=== PATIENT | male | born 1965 | race Caucasian/White ===

== ENCOUNTER → 2017-06-28 | Outpatient (CLI) | payer MEDICAID ==
[~2017-06-28] MED LIST: ABX LEFTEYE; ALEN70TA5 PO; AMLO10TA2 PO; ASPI325T17 PO; ATEN25TA PO; ATOR10TA9 PO; BENA40TA2 PO; DIAZ10TA4 PO; DULO30CA2 PO; GABA300C10 PO; MELO15TA24 PO; METF500T4 PO; OMEP20TA62 PO; OXYC-307 PO; OXYCODONE ER PO; TRAM50TA2 PO; ZOLP5TAB6 PO
[2017-06-28 14:26] LABS: BASOPHILS # (AUTO) 0.04 x10^3/uL (0-0.1); BASOPHILS % (AUTO) 0 % (0-1); EOSINOPHILS # (AUTO) 0.14 x10^3/uL (0-0.4); EOSINOPHILS % (AUTO) 2 % (1-7); LYMPHOCYTES # (AUTO) 1.93 x10^3/uL (1-3.4); LYMPHOCYTES % (AUTO) 23 % (22-44); MD NO; MEAN CORPUSCULAR HEMOGLOBIN 29.1 pg (27.5-34.5); MEAN CORPUSCULAR HGB CONC 33.6 g/dL (33.2-36.2); MEAN CORPUSCULAR VOLUME 86.6 fL (81-97); MEAN PLATELET VOLUME 7.1 fL (7.4-10.4); MONOCYTES % (AUTO) 6 % (2-9); NEUTROPHILS # (AUTO) 5.77 x10^3/uL (1.8-6.8); NEUTROPHILS % (AUTO) 69 % (42-75); PLATELET COUNT 343 x10^3/uL (130-400); RED BLOOD COUNT 4.89 x10^6/uL (4.38-5.82)
[2017-06-28 14:34] LABS: MICROSCOPIC AUTO
[2017-06-28 14:38] LABS: ANION GAP 8 mmol/L (5-15); CALCIUM 8.9 mg/dL (8.5-10.1); CHLORIDE 104 mmol/L (98-107)
[2017-06-28 14:41] LABS: ALANINE AMINOTRANSFERASE 47 U/L (12-78); ALKALINE PHOSPHATASE 88 U/L (45-117); BILIRUBIN,TOTAL 0.5 mg/dL (0.2-1.0); CREATININE 0.97 mg/dL (0.7-1.3); TOTAL PROTEIN 7.8 g/dL (6.4-8.2)
[2017-06-28 14:41] LABS: CULTURE INDICATED? NO
== END | disposition home or self-care (01) ==
LOC: STAR 13:22
PROVIDERS: ATTEND Orthopaedic Surgery
DX: Z01.818 Encounter for other preprocedural examination (principal); M17.12 Unilateral primary osteoarthritis, left knee
CPT/HCPCS: 36415; 80053; 81001; 85025; 87081; 87147; 93005

== ENCOUNTER 2017-07-05 07:10 | Inpatient (IN) | payer MEDICAID ==
[~2017-07-05] VITALS: Ht 177.8 cm; Wt 108.9 kg
[2017-07-05] MEDS ORDERED: LACTATED RINGERS 1,000 ML IV SCH (07:36)
[2017-07-05] MEDS ORDERED: OXYC20TA59 PO (07:47)
[2017-07-05] MEDS ORDERED: CELE200C PO (07:47)
[2017-07-05] MEDS ORDERED: VANCOMYCIN 2,000 MG in SODIUM CHLORIDE 0.9% 500 ML IV ONE (08:00)
[2017-07-05] MEDS ORDERED: LIDOCAINE-MPF 1%, 2ML INFIL PRN (08:00)
[2017-07-05] MEDS ORDERED: VANCOMYCIN PER PHARMACY MC PRN (08:00)
[2017-07-05] MEDS ORDERED: FENTANYL PF 250 MCG/5ML ONE (08:08)
[2017-07-05] MEDS ORDERED: MIDAZOLAM 1 MG/ML, 2ML ONE (08:08)
[2017-07-05] MEDS ORDERED: TRANEXAMIC ACID 100 MG/ML, 10ML ONE (08:40)
[2017-07-05] MEDS ORDERED: ROPIvacaine/PF 0.2%, 20 ML ONE (08:40)
[2017-07-05] MEDS ORDERED: SODIUM CHLORIDE 0.9% 100 ML ONE (08:40)
[2017-07-05] MEDS ORDERED: morphine SULFATE/PF 1 MG/ML, 10ML ONE (08:40)
[2017-07-05] MEDS ORDERED: EPINEPHRINE 1 MG/ML, 1ML ONE (08:40)
[2017-07-05] MEDS ORDERED: KETOROLAC 60 MG/2 ML ONE (08:40)
[2017-07-05] MEDS ORDERED: GABAPENTIN 300 MG CAPSULE ONE (09:27)
[2017-07-05] MEDS ORDERED: NEOSTIGMINE 1 MG/ML, 10ML ONE (09:28)
[2017-07-05] MEDS ORDERED: ONDANSETRON 2MG/ML, 2ML ONE (09:28)
[2017-07-05] MEDS ORDERED: GLYCOPYRROLATE 0.2MG/1ML, 5ML ONE (09:28)
[2017-07-05] MEDS ORDERED: DEXAMETHASONE 4 MG/ML, 1ML ONE (09:28)
[2017-07-05] MEDS ORDERED: ROCURONIUM 10 MG/ML,10ML ONE (09:28)
[2017-07-05] MEDS ORDERED: PROPOFOL 10 MG/ML, 20ML ONE (09:28)
[2017-07-05] MEDS ORDERED: SUCCINYLCHOLINE 20 MG/ML, 10ML ONE (09:28)
[2017-07-05] MEDS ORDERED: CEFAZOLIN 1,000 MG ONE (09:28)
[2017-07-05] MEDS ORDERED: GABAPENTIN 300 MG CAPSULE PO ONE (09:30)
[2017-07-05] MEDS ORDERED: LABETALOL 5MG/ML, 20ML IV PRN (10:30)
[2017-07-05] MEDS ORDERED: FENTANYL PF 100 MCG/2ML IV PRN (10:30)
[2017-07-05] MEDS ORDERED: MORPHINE SULFATE 4 MG/ML, 1ML IV PRN (10:30)
[2017-07-05] MEDS ORDERED: ACETAMINOPHEN 325 MG TABLET PO PRN ×2 (10:30→13:30)
[2017-07-05] MEDS ORDERED: OXYcodone 5 MG/5 ML ORAL.SOL UDC PO PRN (10:30)
[2017-07-05] MEDS ORDERED: METOCLOPRAMIDE 5 MG/ML, 2ML IV PRN (10:30)
[2017-07-05] MEDS ORDERED: ONDANSETRON 2MG/ML, 2ML IVPush PRN ×2 (10:30→13:30)
[2017-07-05] MEDS ORDERED: hydrALAzine 20 MG/ML, 1ML IV PRN (10:30)
[2017-07-05] MEDS ORDERED: OXYcodone 5 MG/5 ML ORAL.SOL UDC ONE (11:31)
[2017-07-05] MEDS ORDERED: MEPERIDINE/PF 50 MG/ML ONE (11:31)
[2017-07-05] MEDS ORDERED: MEPERIDINE/PF 25MG/0.5ML IVPush PRN (12:00)
[2017-07-05 13:15] VITALS: BP 129/82
[2017-07-05] MEDS ORDERED: HYDROcodone/APAP 7.5-325MG/15ML UDC PO PRN (13:30)
[2017-07-05] MEDS ORDERED: BISACODYL 10 MG SUPP PR PRN (13:30)
[2017-07-05] MEDS ORDERED: ALUMINUM/MAG/SIMETHICONE 30 ML UDC PO PRN (13:30)
[2017-07-05] MEDS ORDERED: DIPHENHYDRAMINE 25 MG CAPSULE PO PRN (13:30)
[2017-07-05] MEDS ORDERED: METFORMIN MC SCH (13:30)
[2017-07-05] MEDS ORDERED: SENNA/DOCUSATE TABLET PO PRN (13:30)
[2017-07-05] MEDS ORDERED: MAGNESIUM HYDROXIDE 8%, 30ML UDC PO PRN (13:30)
[2017-07-05] MEDS: metFORMIN 500 MG TABLET PO SCH (16:49)
[2017-07-05] MEDS: GABAPENTIN 300 MG CAPSULE PO SCH ×2 (16:49→20:50)
[2017-07-05] MEDS: POTASSIUM CHLORIDE 10 MEQ in D5%-0.45% NACL 1,000 ML IV SCH (16:50)
[2017-07-05] MEDS: CEFAZOLIN PMX 1GM/50ML 50 ML IVPB SCH (17:34)
[2017-07-05] MEDS ORDERED: KETOROLAC 30 MG/1 ML ONE (17:57)
[2017-07-05] MEDS: OXYcodone IR 5MG TABLET PO PRN ×2 (18:01→22:48)
[2017-07-05 19:00] VITALS: BP 112/72
[2017-07-05] MEDS: DOCUSATE 100 MG CAPSULE PO SCH (20:50)
[2017-07-05] MEDS: SODIUM CHLORIDE FLUSH 10ML SYR IVF SCH (20:51)
[2017-07-05 23:13] VITALS: BP 112/71
[2017-07-06] MEDS: OXYcodone IR 5MG TABLET PO PRN ×5 (02:59→15:34)
[2017-07-06] MEDS: CEFAZOLIN PMX 1GM/50ML 50 ML IVPB SCH (03:00)
[2017-07-06 03:25] VITALS: BP 111/76
[2017-07-06] MEDS ORDERED: ENOXAPARIN 30 MG/0.3 ML SQ SCH (06:00)
[2017-07-06 06:35] VITALS: BP 118/76
[2017-07-06] MEDS: GABAPENTIN 300 MG CAPSULE PO SCH ×2 (08:06→15:33)
[2017-07-06] MEDS: DOCUSATE 100 MG CAPSULE PO SCH (08:07)
[2017-07-06] MEDS: SODIUM CHLORIDE FLUSH 10ML SYR IVF SCH (08:07)
[2017-07-06] MEDS: metFORMIN 500 MG TABLET PO SCH (08:08)
[2017-07-06] MEDS ORDERED: MULTIVITAMINS/MINERALS TABLET PO SCH (09:00)
[2017-07-06] MEDS ORDERED: BENAZEPRIL 20 MG TABLET PO SCH (09:00)
[2017-07-06] MEDS ORDERED: AMLODIPINE 5 MG TABLET PO SCH (09:00)
[2017-07-06] MEDS: POTASSIUM CHLORIDE 10 MEQ in D5%-0.45% NACL 1,000 ML IV SCH (10:24)
[2017-07-06] MEDS ORDERED: KETOROLAC 30 MG/1 ML IV SCH (13:30)
[2017-07-06] MEDS ORDERED: OXYC-307 PO (14:17)
[2017-07-06] MEDS ORDERED: ASPI-496 PO (14:18)
[2017-07-06 15:54] VITALS: BP 121/76
[2017-07-11] MEDS ORDERED: ALENDRONATE 70 MG TABLET PO SCH (06:30)
== END 2017-07-06 16:54 | disposition home or self-care (01) | DRG 470 ==
LOC: OUT 07:10 → 4NOR 12:55 → OUT 13:38 → DCLOUNGE 07-06 16:38
PROVIDERS: ADMIT Orthopaedic Surgery; ATTEND Orthopaedic Surgery
PROC: 0SRD0J9 Replacement of Left Knee Joint with Synthetic Substitute, Cemented, Open Approach (ICD-10-PCS; principal; 2017-07-05 10:00)
DX: M17.12 Unilateral primary osteoarthritis, left knee (principal); M06.9 Rheumatoid arthritis, unspecified; E11.9 Type 2 diabetes mellitus without complications; G47.30 Sleep apnea, unspecified; I10 Essential (primary) hypertension; Z82.61 Family history of arthritis; Z87.891 Personal history of nicotine dependence
CPT/HCPCS: 82962; C1713; J0171; J0690; J1100; J1650; J1885; J2175; J2250; J2274; J2405; J2704; J2710; J2795; J3010; J3370; J3480; J3490; C1776; J0330; J7040; J7120; Q0163